=== PATIENT | female | born 1945 | race Caucasian/White ===

== ENCOUNTER 2017-04-01 08:34 | Day surgery (SDC) | payer MEDICARE, BC ==
[2017-04-01] MEDS ORDERED: Sodium Chloride 0.9% 10 ML Syringe FLUSH PRN (09:00)
[2017-04-01 10:10] VITALS: BP 135/78
--- NOTE | 2017-04-01 14:06 | OR ---
DATE OF PROCEDURE: 04/01/2017 POSTOPERATIVE CARE: Postoperative care will be provided mainly at the [address] [place] [address] [facility] in conjunction with [facility]. PREOPERATIVE DIAGNOSIS: Cataract, left eye. PREOPERATIVE DIAGNOSIS: Cataract, left eye. PROCEDURE: Cataract extraction, phacoemulsification with intraocular lens placement, left eye. ANESTHESIA: Topical and intracameral. ESTIMATED BLOOD LOSS: Minimal. COMPLICATIONS: None. PATHOLOGY SPECIMENS: None. SURGICAL FINDINGS: None. INDICATION FOR PROCEDURE: The patient is a 71-year-old female with history of a visually significant cataract in the left eye, which interfered with activities of daily living. This consisted of a nuclear sclerosis cataract. Following careful discussion of the risks, benefits and alternatives to cataract extraction with intraocular lens placement including blindness and , the patient elected to proceed, and informed, written consent was obtained prior to the procedure. DESCRIPTION OF THE PROCEDURE: The patient was previously identified, and a alfredo placed above the left eye. All sources, including the patient, indicated that the left eye was the correct eye. The patient was subsequently taken to the operating room where standard monitors were applied. The patient was then prepped and draped in the usual sterile fashion for ophthalmic surgery. Attention was first directed at the 12 o'clock position where a paracentesis port was fashioned. Shugar solution followed by Viscoat was instilled into the eye. Attention was then directed to the 8:30 position where a triplanar incision was made in a near-clear manner using a keratome. A continuous capsulorrhexis was then made using a combination of the cystotome and Utrata forceps. Hydrodissection was achieved using a balanced salt solution, and the lens rotated nicely. Phacoemulsification was then done using a modified [id number] technique without complication. Phaco time was 12.55 CDE. The remaining cortex was removed using the irrigation/aspiration handpiece. Provisc was then instilled into the eye. A Technis lens, model [id number], at 21.0 diopters was then placed in the capsular bag using an [place] injector. The remaining viscoelastic was removed using the irrigation/aspiration forceps. All wounds were then checked and found to be watertight. The lid speculum and drapes were removed. Maxitrol ointment was placed in the patient's left eye, and the eye was shielded. The patient tolerated the procedure well. The patient was instructed to follow up tomorrow. All needle and sponge counts were correct at the end of the procedure. Stephanie Pablo MD /[id number]
== END 2017-04-01 10:33 | disposition home or self-care (01) ==
LOC: JP.SDS 08:34
PROVIDERS: ATTEND Ophthalmology
DX: H25.12 Age-related nuclear cataract, left eye (principal); I10 Essential (primary) hypertension
CPT/HCPCS: 66984; J7050; C1780

== ENCOUNTER 2017-04-15 07:28 | Day surgery (SDC) | payer MEDICARE, BC ==
[2017-04-15] MEDS ORDERED: Sodium Chloride 0.9% 10 ML Syringe FLUSH PRN (07:45)
[2017-04-15 08:56] VITALS: BP 150/74
--- NOTE | 2017-04-15 11:20 | OR ---
DATE OF PROCEDURE: 04/15/2017 POSTOPERATIVE CARE: Postoperative care will be provided mainly at the [address] [place] [address] [facility] in conjunction with [facility]. PREOPERATIVE DIAGNOSIS: Cataract, right eye. PREOPERATIVE DIAGNOSIS: Cataract, right eye. PROCEDURE: Cataract extraction, phacoemulsification with intraocular lens placement, right eye. ANESTHESIA: Topical and intracameral. ESTIMATED BLOOD LOSS: Minimal. COMPLICATIONS: None. PATHOLOGY SPECIMENS: None. SURGICAL FINDINGS: None. INDICATION FOR PROCEDURE: The patient is a 71-year-old female with history of a visually significant cataract in the right eye, which interfered with activities of daily living. This consisted of a nuclear sclerosis cataract. Following careful discussion of the risks, benefits and alternatives to cataract extraction with intraocular lens placement including blindness and , the patient elected to proceed, and informed, written consent was obtained prior to the procedure. DESCRIPTION OF THE PROCEDURE: The patient was previously identified, and a alfredo placed above the right eye. All sources, including the patient, indicated that the right eye was the correct eye. The patient was subsequently taken to the operating room where standard monitors were applied. The patient was then prepped and draped in the usual sterile fashion for ophthalmic surgery. Attention was first directed at the 12 o'clock position where a paracentesis port was fashioned. Shugar solution followed by Viscoat was instilled into the eye. Attention was then directed to the 8:30 position where a triplanar incision was made in a near-clear manner using a keratome. A continuous capsulorrhexis was then made using a combination of the cystotome and Utrata forceps. Hydrodissection was achieved using a balanced salt solution, and the lens rotated nicely. Phacoemulsification was then done using a modified [id number]-[id number] technique without complication. Phaco time was 12.84 CDE. The remaining cortex was removed using the irrigation/aspiration handpiece. Provisc was then instilled into the eye. A Technis lens, model [id number], at 21.0 diopters was then placed in the capsular bag using an [place] injector. The remaining viscoelastic was removed using the irrigation/aspiration forceps. All wounds were then checked and found to be watertight. The lid speculum and drapes were removed. Maxitrol ointment was placed in the patient's right eye, and the eye was shielded. The patient tolerated the procedure well. The patient was instructed to follow up tomorrow. All needle and sponge counts were correct at the end of the procedure. Stephanie Pablo MD /[id number]
== END 2017-04-15 08:59 | disposition home or self-care (01) ==
LOC: JP.SDS 07:28
PROVIDERS: ATTEND Ophthalmology
DX: H25.11 Age-related nuclear cataract, right eye (principal); I10 Essential (primary) hypertension; Z87.891 Personal history of nicotine dependence
CPT/HCPCS: 66984; J7050; C1780

== ENCOUNTER 2020-12-30 16:10 | Emergency (ER) | payer MEDICARE ==
[2020-12-30] MEDS ORDERED: Sodium Chloride 0.9% 10 ML Syringe FLUSH PRN (16:20)
[2020-12-30] MEDS ORDERED: Diltiazem 25 MG/5 ML SDV IVPUSH ONE (16:21)
--- NOTE | 2020-12-30 16:24 | EDM.PDOC ---
ED HPI GENERAL MEDICAL PROBLEM - General Stated Complaint: AFIB Time Seen by Provider: 12/30/20 16:11 Source of Information: Reports: Patient, Provider, RN Notes Reviewed History Limitations: Reports: No Limitations - History of Present Illness INITIAL COMMENTS - FREE TEXT/NARRATIVE: 75-year-old female presents emergency department today with complaint of atrial fibrillation and RVR. I did receive a call from one of the urgent care providers who states she presented to urgent care not feeling well headache really been going on for about 24 hours during her evaluation noted to be tachycardic and get an EKG which demonstrated atrial fibrillation. Subsequently sent to the emergency department for further evaluation EKG provided does show atrial fibrillation and RVR. Patient is certain that this happened last night sometime when she started not feel well headache started at that time as well she does not feel palpitations no shortness of breath she has never had any problems with atrial fibrillation. She denies chest pain nausea vomiting diaphoresis - Related Data Allergies Allergy/AdvReac Type Severity Reaction Status Date / Time meperidine HCl [From Demerol] AdvReac Agitation Verified 12/30/20 16:36 Home Meds: Home Meds Hydrochlorothiazide/Losartan [Hyzaar 100-25 MG] 25 - 100 mg PO DAILY 09/21/16 [History] Levothyroxine [Sythroid] 100 mcg PO DAILY 09/21/16 [History] Naproxen Sodium [Aleve] 220 mg PO ASDIRECTED PRN 09/21/16 [History] Potassium Chloride [Klor-Con 10] 10 meq PO DAILY 09/21/16 [History] Simvastatin [Zocor] 20 mg PO BEDTIME 09/21/16 [History] Apixaban [Eliquis] 5 mg PO BID #60 tablet 12/30/20 [Rx] Diltiazem HCl [Cardizem LA] 120 mg PO DAILY #30 tab.sr.24h 12/30/20 [Rx] Past Medical History HEENT History: Reports: Cataract, Impaired Vision Cardiovascular History: Reports: Hypertension 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: Endometriosis, Fibroids, Musculoskeletal History: Reports: Arthritis Endocrine/Metabolic History: Reports: Hypothyroidism, Obesity/BMI 30+ Hematologic History: Reports: Blood Transfusion(s) Dermatologic History: Reports: Other (See Below) Other Dermatologic History: roscia - Infectious Disease History Infectious Disease History: Reports: Chicken Pox, Measles, Mumps - Past Surgical History HEENT Surgical History: Reports: Tonsillectomy Cardiovascular Surgical History: Reports: None GI Surgical History: Reports: Colonoscopy Female Surgical History: Reports: Section Endocrine Surgical History: Reports: None Musculoskeletal Surgical History: Reports: None Dermatological Surgical History: Reports: None Social & Family History - Caffeine Use Caffeine Use: Reports: Coffee ED ROS GENERAL - Review of Systems Review Of Systems: See Below Constitutional: Reports: No Symptoms HEENT: Reports: No Symptoms Respiratory: Reports: No Symptoms Cardiovascular: Reports: No Symptoms GI/Abdominal: Reports: No Symptoms Neurological: Reports: Headache ED EXAM, GENERAL - Physical Exam Exam: See Below Exam Limited By: No Limitations General Appearance: Alert, WD/WN, No Apparent Distress Respiratory/Chest: No Respiratory Distress, Lungs Clear, Normal Breath Sounds, No Accessory Muscle Use, Chest Non-Tender Cardiovascular: Tachycardia GI/Abdominal: Soft, Non-Tender ED CARDIOLOGY PROCEDURES - Cardioversion Time of Cardioversion: 17:29 Indication: Atrial Fibrillation with RVR Patient Counseled: Yes Informed Consent Obtained: Yes Preparation: IV Access, Airway Management Equipment, Supplemental Oxygen, Monitor, Reversal Agents Available, Other (Please seeAnesthesia in the room TREASURY MANAGER note for details) Pre-Procedure Sedation: Propofol Cardioversion Energy: 200J Sync Mode: Biphasic Successful: Yes Number of Attempts: 2 Patient Condition Post Cardioversion: Unchanged Post Cardioversion EKG Reviewed: Yes Course - Vital Signs Last Recorded V/S: Last Vital Signs Temp 98.0 F 12/30/20 16:40 Pulse 94 12/30/20 16:40 Resp 14 12/30/20 16:40 BP 138/78 12/30/20 16:40 Pulse Ox 95 12/30/20 16:40 - Orders/Labs/Meds Orders: Active Orders 24 hr Category Date Time Status Cardiac Monitoring [RC] .As Directed Care 12/30/20 16:20 Active EKG Documentation Completion [RC] ASDIRECTED Care 12/30/20 17:28 Active Peripheral IV Care [RC] . DIRECTED Care 12/30/20 16:21 Active Sodium Chloride 0.9% [Normal Saline] 1,000 ml Med 12/30/20 16:30 Active IV ASDIRECTED Sodium Chloride 0.9% [Saline Flush] Med 12/30/20 16:20 Active 10 ml FLUSH ASDIRECTED PRN oxyCODONE Med 12/30/20 17:21 Active 5 mg PO Q4H PRN Peripheral IV Insertion Adult [OM.PC] Stat Oth 12/30/20 16:20 Ordered EKG 12 Lead [EK] Stat Ther 12/30/20 17:28 Stop Req Medication Orders Sodium Chloride (Normal Saline) 1,000 mls @ 125 mls/hr IV ASDIRECTED DANUTA Last Admin: 12/30/20 16:30 Dose: 125 mls/hr Documented by: MIGUEL Oxycodone HCl (Oxycodone 5 Mg Tab) 5 mg PO Q4H PRN PRN Reason: Pain Sodium Chloride (Sodium Chloride 0.9% 10 Ml Syringe) 10 ml FLUSH ASDIRECTED PRN PRN Reason: Keep Vein Open Last Admin: 12/30/20 16:43 Dose: 10 ml Documented by: DWAYNE Labs: Laboratory Tests 12/30/20 12/30/20 Range/Units 16:20 16:20 WBC 12.5 H (4.5-11.0) K/uL RBC 5.35 (3.30-5.50) M/uL Hgb 15.7 H (12.0-15.0) g/dL Hct 47.6 (36.0-48.0) % MCV 89 (80-98) fL MCH 29 (27-31) pg MCHC 33 (32-36) % Plt Count 224 (150-400) K/uL Neut % (Auto) 62.3 (36-66) % Lymph % (Auto) 27.2 (24-44) % Edgar % (Auto) 9.7 H (2-6) % Eos % (Auto) 0.6 L (2-4) % Baso % (Auto) 0.2 (0-1) % Sodium 141 (140-148) mmol/L Potassium 3.3 L (3.6-5.2) mmol/L Chloride 103 (100-108) mmol/L Carbon Dioxide 28 (21-32) mmol/L Anion Gap 13.3 (5.0-14.0) mmol/L BUN 16 (7-18) mg/dL Creatinine 0.9 (0.6-1.0) mg/dL Est Cr Clr Drug Dosing 54.14 mL/min Estimated GFR (MDRD) > 60 (>60) Glucose 105 (74-106) mg/dL Calcium 9.5 (8.5-10.1) mg/dL Total Bilirubin 0.7 (0.2-1.0) mg/dL AST 14 L (15-37) U/L ALT 17 (12-78) U/L Alkaline Phosphatase 78 (46-116) U/L Troponin I < 0.017 (0.000-0.056) ng/mL Total Protein 6.7 (6.4-8.2) g/dL Albumin 3.3 L (3.4-5.0) g/dL Globulin 3.4 (2.3-3.5) g/dL Albumin/Globulin Ratio 1.0 L (1.2-2.2) Meds: Medications Generic Name Dose Route Start Last Admin Trade Name Freq PRN Reason Stop Dose Admin Sodium Chloride 1,000 mls @ 125 mls/hr 12/30/20 16:30 12/30/20 16:30 Normal Saline IV 125 mls/hr ASDIRECTED DANUTA Administration Oxycodone HCl 5 mg 12/30/20 17:21 Oxycodone 5 Mg Tab PO Q4H PRN Pain Sodium Chloride 10 ml 12/30/20 16:20 12/30/20 16:43 Sodium Chloride 0.9% 10 Ml Syringe FLUSH 10 ml ASDIRECTED PRN Administration Keep Vein Open Discontinued Medications Generic Name Dose Route Start Last Admin Trade Name Rupert PRN Reason Stop Dose Admin Diltiazem HCl 20 mg 12/30/20 16:21 12/30/20 16:26 Diltiazem 25 Mg/5 Ml Sdv IVPUSH 12/30/20 16:22 20 mg ONETIME ONE Administration Propofol Confirm 12/30/20 17:43 Propofol 200 Mg/20 Ml Sdv Administered 12/30/20 17:44 Dose 200 mg .ROUTE .STK-MED ONE - Re-Assessments/Exams Free Text/Narrative Re-Assessment/Exam: 12/30/20 16:24 Did attempt to do carotid massage and Valsalva without much success Departure - Departure Time of Disposition: 18:09 Disposition: Home, Self-Care 01 Condition: Fair Clinical Impression: Atrial fibrillation Qualifiers: Atrial fibrillation type: persistent (not longstanding) Qualified Code(s): I48.19 - Other persistent atrial fibrillation; I48.1 - Persistent atrial fibrillation Instructions: Atrial Fibrillation, [id number] Referrals: PCP,None [Primary Care Provider] - Additional Instructions: Start the medication of Cardizem you can start that tomorrow morning, start the medication of Eliquis recommend starting that tonight that is a twice daily drug, stop your Zocor please follow-up with Dr. Avina in the next 1 to 2 days for reevaluation he will probably need an echocardiogram to be done through the clinic call return to the emergency department worsening of symptoms, your medications have been faxed to [facility] pharmacy Critical Care Note - Critical Care Note Total Time (mins): 30 Sepsis Event Note (ED) - Focused Exam Vital Signs: Vital Signs Temp Pulse Resp BP Pulse Ox 12/30/20 16:40 98.0 F 94 14 138/78 95 - My Orders Last 24 Hours: My Active Orders 12/30/20 16:20 Cardiac Monitoring [RC] .As Directed Sodium Chloride 0.9% [Saline Flush] 10 ml FLUSH ASDIRECTED PRN Peripheral IV Insertion Adult [OM.PC] Stat 12/30/20 16:21 Peripheral IV Care [RC] . DIRECTED 12/30/20 16:30 Sodium Chloride 0.9% [Normal Saline] 1,000 ml IV ASDIRECTED 12/30/20 17:28 EKG Documentation Completion [RC] ASDIRECTED EKG 12 Lead [EK] Stat - Assessment/Plan Last 24 Hours: My Active Orders 12/30/20 16:20 Cardiac Monitoring [RC] .As Directed Sodium Chloride 0.9% [Saline Flush] 10 ml FLUSH ASDIRECTED PRN Peripheral IV Insertion Adult [OM.PC] Stat 12/30/20 16:21 Peripheral IV Care [RC] . DIRECTED 12/30/20 16:30 Sodium Chloride 0.9% [Normal Saline] 1,000 ml IV ASDIRECTED 12/30/20 17:28 EKG Documentation Completion [RC] ASDIRECTED EKG 12 Lead [EK] Stat Plan: Assessment Acuity = acute Site and laterality = atrial fibrillation with RVR Etiology = unknown Manifestations = none Location of injury = Home Lab values = WBC elevated 12.5 consistent with leukocytosis remainder CBC is unremarkable potassium low at 3.3 consistent hypokalemia the rest of the CMP is unremarkable troponin was negative EKG was done in the clinic chest x-ray also done at the clinic Plan Did try cardioversion 2 times she did convert to sinus rhythm but then reverted back to atrial fibrillation. She had a good response to Cardizem did slow her down from 170 into the 90s therefore discharged home on Cardizem 120 mg PO twice daily #30, Eliquis 5 mg po bid #60 , follow-up in clinic next 1 to 2 days she will stop her Zocor plan for echocardiogram in the clinic This note was dictated using [employer] voice recognition software please call with any questions on syntax or grammar.
[2020-12-30] MEDS ORDERED: Sodium Chloride 0.9% 1,000 ML IV SCH (16:30)
[2020-12-30] MEDS ORDERED: oxyCODONE 5 MG Tab PO PRN (17:21)
[2020-12-30] MEDS ORDERED: Propofol 200 MG/20 ML SDV ONE (17:43)
[2020-12-30 18:07] VITALS: BP 122/47; PULSE 91
== END 2020-12-30 18:51 | disposition home or self-care (01) ==
LOC: JP.ED 16:10
DX: I48.19 Other persistent atrial fibrillation (principal); I10 Essential (primary) hypertension; E03.9 Hypothyroidism, unspecified; E66.9 Obesity, unspecified; Z68.36 Body mass index [BMI] 36.0-36.9, adult; Z79.899 Other long term (current) drug therapy; Z79.01 Long term (current) use of anticoagulants
CPT/HCPCS: 36415; 80053; 84484; 85025; 92960; 96374; 99285; J2704; J3490; J7030

== ENCOUNTER 2022-07-04 09:44 | Emergency (ER) | payer MEDICARE ==
[2022-07-04 10:19] VITALS: BP 141/50; PULSE 85
== END 2022-07-04 11:27 | disposition home or self-care (01) ==
LOC: JP.ED 09:44
DX: R10.13 Epigastric pain (principal); I48.91 Unspecified atrial fibrillation; E03.9 Hypothyroidism, unspecified; E66.9 Obesity, unspecified; Z68.37 Body mass index [BMI] 37.0-37.9, adult; Z79.01 Long term (current) use of anticoagulants; Z79.899 Other long term (current) drug therapy; Z88.8 Allergy status to other drugs, medicaments and biological substances
CPT/HCPCS: 36415; 80048; 84484; 85025; 99284